=== PATIENT | male | born 1970 | race African-American/Black ===

== ENCOUNTER 2016-11-23 10:54 | Emergency (ER) | payer OTHER ==
[~2016-11-23] VITALS: Ht 157.5 cm; Wt 69.8 kg
[~2016-11-23 10:54] MED LIST: ASPIR 8181 M1 PO; ASPIR-TRIN325 M1 PO; CYCLOBENZAPRINE10 MG PO; LISINOPRIL5 MG PO; LOPRESSOR25 MG PO; LOVASTATIN10 MG PO; NAPROSYN500 MG PO; NAPROXEN500 MG PO; NOHOMEMEDS; PERCOCET 5/31 TABLET PO; PLAVIX75 MG PO; PLENDIL5 M1 PO; TRAZODONE HCL50 MG PO; ZESTRIL,PRINIVI10 M1 PO; Zocor PO
[2016-11-23 12:59] LABS: HEMATOCRIT 40.5 % (38.0-50.0); MCH 31.2 PG (29.0-34.0); MCHC 34.3 G/DL (30.0-36.0); MCV 90.8 FL (86-99); MEAN PLAT.VOLUME 9.1 uM^3 (9.0-12.4); PLATELET COUNT 242 K/uL (156-360); RBC DIS.WIDTH-CV 13.2 % (11.8-14.6); RBC DIS.WIDTH-SD 42.9 % (39-53); RED BLOOD COUNT 4.46 M/uL (4.00-5.50)
[2016-11-23 13:09] LABS: CHLORIDE 107 mEq/L (99-109); POTASSIUM 4.2 mEq/L (3.7-5.4); SODIUM 137 mEq/L (136-147)
[2016-11-23 13:11] LABS: GLUCOSE 109 mg/dL (70-99)
[2016-11-23 13:13] LABS: ANION GAP 10 MEQ/L (2-14); TOTAL BILIRUBIN 0.2 mg/dL (0.0-1.0)
[2016-11-23 13:15] LABS: ALKALINE PHOSPHATASE 88 IU/L (3-129); GFR ESTIMATE (CALCULATED) > 59 mL/min/
[2016-11-23 13:16] LABS: UREA NITROGEN (BUN) 18 mg/dL (9-23)
[2016-11-23 13:18] LABS: LIPASE 51 U/L (1.0-51.0)
[2016-11-23 13:19] LABS: ADD MIUA? NO; BILIRUBIN NEGATIVE; BLOOD NEGATIVE; COLOR YELLOW ((YELLOW)); GLUCOSE (STRIP) NEGATIVE; KETONES TRACE; LEUKOCYTES NEGATIVE; NITRITE NEGATIVE; PH, URINE 6.5 (5-8); PROTEIN (STRIP) 30; SPECIFIC GRAVITY 1.028 (1.000-1.030)
[2016-11-23 15:03] VITALS: BP 134/92
[2016-11-23] MEDS ORDERED: ZOFRAN ODT4 MG PO (15:06)
[2016-11-23] MEDS ORDERED: BENTYL10 MG PO (15:06)
== END 2016-11-23 15:15 | disposition home or self-care (01) ==
LOC: EME → EDBD 10:54 → EME 15:15
PROVIDERS: Nurse Practitioner Family
DX: R10.84 Generalized abdominal pain (principal); N28.89 Other specified disorders of kidney and ureter; I10 Essential (primary) hypertension; I25.2 Old myocardial infarction; F17.200 Nicotine dependence, unspecified, uncomplicated
CPT/HCPCS: 74177; 80053; 81003; 83690; 85027; 99281; 99285; J2270; J2405; J7030

== ENCOUNTER 2017-01-07 11:49 | Emergency (ER) | payer OTHER ==
[~2017-01-07] VITALS: Ht 160 cm; Wt 69.6 kg
[~2017-01-07 11:49] MED LIST changes: +BENTYL10 MG PO; +ZOFRAN ODT4 MG PO
[2017-01-07] MEDS ORDERED: SKELAXIN800 MG PO (13:44)
[2017-01-07] MEDS ORDERED: TRAMADOL HCL50 MG PO (13:44)
[2017-01-07 13:53] VITALS: BP 168/102
== END 2017-01-07 13:54 | disposition home or self-care (01) ==
LOC: EME 11:49
DX: S16.1XXA Strain of muscle, fascia and tendon at neck level, initial encounter (principal); I10 Essential (primary) hypertension; D17.0 Benign lipomatous neoplasm of skin and subcutaneous tissue of head, face and neck; V49.10XA Passenger injured in collision with unspecified motor vehicles in nontraffic accident, initial encounter; Z88.0 Allergy status to penicillin
CPT/HCPCS: 72050; 99281; 99284